=== PATIENT | female | born 1980 | race Caucasian/White ===

== ENCOUNTER → 2017-08-10 | Outpatient (CLI) | payer OTHER ==
[2016-05-21 16:12] VITALS: BP 123/74
[~2017-08-10] MED LIST: HYDR-971 PO; IBUP800T19 PO
--- NOTE | 2017-08-11 07:52 | RAD ---
History: Ankle pain. Comparison: None. Findings: AP and lateral views of the right ankle. Evaluation for acute traumatic injury is limited by lack of 3rd view. No acute fracture or dislocation is identified. Several heterotopic calcifications are seen adjacent to the medial malleolus. Mild lateral ankle soft tissue swelling is seen. Impression: 1. No acute osseous abnormality identified. 2. Lateral ankle soft tissue swelling. Electronically signed by: Wayne Cullen MD (08/11/2017 7:49 AM) [facility]
== END | disposition home or self-care (01) ==
LOC: RAD 16:32
PROVIDERS: ATTEND Physician Assistant
DX: M79.89 Other specified soft tissue disorders (principal); Z87.442 Personal history of urinary calculi
CPT/HCPCS: 73600

== ENCOUNTER 2019-06-04 21:08 | Emergency (ER) | payer BC ==
[~2019-06-04] VITALS: Ht 162.6 cm; Wt 78.0 kg
[~2019-06-04 21:08] MED LIST changes: +HYDR-3165 PO; -HYDR-971 PO
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
[2019-06-04 22:32] VITALS: BP 117/89
[2019-06-04] MEDS ORDERED: HYDR-3165 PO (22:36)
== END 2019-06-04 22:32 | disposition home or self-care (01) ==
LOC: ER 21:08
DX: S90.31XA Contusion of right foot, initial encounter (principal); Z88.2 Allergy status to sulfonamides; V03.90XA Pedestrian on foot injured in collision with car, pick-up truck or van, unspecified whether traffic or nontraffic accident, initial encounter; Y93.89 Activity, other specified; Y92.89 Other specified places as the place of occurrence of the external cause; Y99.8 Other external cause status
CPT/HCPCS: 73630; 99283